=== PATIENT | female | born 1995 | race African-American/Black ===

== ENCOUNTER 2023-07-07 08:16 | Emergency (ER) | payer SELFPAY ==
[~2023-07-07] VITALS: Ht 162.6 cm; Wt 71.9 kg
[2023-07-07 08:55] VITALS: BP 132/88; PULSE 88; RESP 16; TEMP 97.7; O2SAT 100
[2023-07-07] MEDS ORDERED: NYS5LQ MT (09:06)
== END 2023-07-07 09:13 | disposition home or self-care (01) ==
LOC: ER 08:16
DX: B37.0 Candidal stomatitis (principal); Z79.899 Other long term (current) drug therapy